=== PATIENT | male | born 1970 | race Caucasian/White ===

== ENCOUNTER 2020-11-09 08:17 | Day surgery (SDC) | payer OTHER | END 2020-11-09 15:40 | disposition home or self-care (01) | LOC: CANPRESDC → OR 08:17 | PROVIDERS: ATTEND Otolaryngology | PROC: 099R8ZZ Drainage of Left Maxillary Sinus, Via Natural or Artificial Opening Endoscopic (ICD-10-PCS; principal; 2020-11-09) | PROC: 09SM0ZZ Reposition Nasal Septum, Open Approach (ICD-10-PCS; 2020-11-09) | DX: J32.0 Chronic maxillary sinusitis (principal); J34.89 Other specified disorders of nose and nasal sinuses; J34.2 Deviated nasal septum; G47.30 Sleep apnea, unspecified; Z88.6 Allergy status to analgesic agent; H93.19 Tinnitus, unspecified ear; Z20.822 Contact with and (suspected) exposure to COVID-19 | CPT/HCPCS: 88312; 88305 ×2; 31256; 31299; 30520; 30140; U0003 ×2; J0360; J2704; J2250; J3010 ×2; J1100; J2175; J1170; J7120; J7040; J2405; 93005 ==